=== PATIENT | female | born 1985 ===

== ENCOUNTER 2018-03-01 14:28 | Emergency (ER) | payer BC ==
--- NOTE | 2018-03-01 14:45 | PDOC ---
Rapid Medical Evaluation Time Seen by Provider: 03/01/18 14:38 Medical Evaluation: Allergies Allergy/AdvReac Type Severity Reaction Status Date / Time adhesive tape Allergy hives Unverified 05/04/17 15:53 albuterol Allergy makes her Unverified 05/04/17 15:53 stop breathing nickel Allergy Hives Unverified 05/04/17 15:53 cats,dogs, weeds, trees Allergy congestion Uncoded 05/04/17 15:53 SSRI AdvReac Severe Palpitation Uncoded 05/04/17 16:32 03/01/18 14:39 The patient presents with a chief complaint of: L shoulder pain for 8 days, possible dislocation I have performed a brief in-person evaluation of this patient; Pertinent physical exam findings: ambulatory, in no respiratory distress, pain with abduction of L shoulder I have ordered the following: L shoulder x-ray The patient will proceed to the ED for further evaluation.
[2018-03-01 14:47] VITALS: TEMP 99.3; BMI 18.2
--- NOTE | 2018-03-01 15:39 | PDOC ---
History of Present Illness - General History Source: Patient Exam Limitations: No Limitations - History of Present Illness Initial Comments: 03/01/18 16:27 The patient is a 32 year old female with a significant PMH of Radha-Danlos syndrome, mitral valve prolapse, and narcolepsy who presents to the emergency presents to the emergency department with a suspected left shoulder dislocation beginning approximately 1 week ago. The patient reports she dislocates her left shoulder multiple times per week and is generally able to reduce it into place. She reports however that for this most recent episode she has been unable to reduce it and has developed associated LUE muscle tightness and neck soreness as noted by her physical therapist yesterday. The patient states she has only had to have her left shoulder reduced in the hospital once in the past and is usually able to reduce it on her own. The patient denies chest pain, shortness of breath, headache and dizziness. Denies fever, chills, nausea, vomit, diarrhea and constipation. Denies dysuria, frequency, urgency and hematuria. Allergies: Albuterol, SSRI. Adhesive tape. Past surgical history: Multiple hip surgeries. Ankle surgery. Cholecystectomy. Appendectomy. Tonsillectomy. Social history: No reported cigarette, alcohol, or drug use. PCP: Dr. Queen <Horacio Cano - Last Filed: 03/01/18 17:42> - General History Source: Patient Exam Limitations: No Limitations <Karine Schultz - Last Filed: 03/01/18 18:51> - General Chief Complaint: Shoulder Dislocation Stated Complaint: Shoulder Dislocation Time Seen by Provider: 03/01/18 14:38 Past History <Horacio Cano - Last Filed: 03/01/18 17:42> - Past Medical History Cardiac Disorders: (Albertina valve prolapse) COPD: No - Surgical History Appendectomy: Yes Cholecystectomy: Yes Neurologic Surgery: Yes (x7 hip) - Suicide/Smoking/Psychosocial Hx Smoking History: Never smoked Have you smoked in the past 12 months: No Information on smoking cessation initiated: No Hx Alcohol Use: No Drug/Substance Use Hx: No Substance Use Type: None <Karine Schultz - Last Filed: 03/01/18 18:51> - Past Medical History Allergies/Adverse Reactions: Allergies Allergy/AdvReac Type Severity Reaction Status Date / Time adhesive tape Allergy hives Verified 03/01/18 14:39 albuterol Allergy makes her Verified 03/01/18 14:39 stop breathing nickel Allergy Hives Verified 03/01/18 14:39 cats,dogs, weeds, trees Allergy congestion Uncoded 03/01/18 14:39 SSRI AdvReac Severe Palpitation Uncoded 03/01/18 14:39 Home Medications: Ambulatory Orders Armodafinil [Nuvigil] 150 mg PO DAILY tablet 05/04/17 Buprenorphine [Butrans] 1 each TD WEEKLY #20 microgram 05/04/17 Oxymorphone HCl [Opana] 10 mg PO ASDIR tablet 05/04/17 Xyrem 3 mcg PO ASDIR 05/04/17 Alprazolam [Xanax] 0.25 mg PO DAILY 03/01/18 L.acidoph,Paracasei, B.lactis [Probiotic] 1 each PO DAILY 03/01/18 Multivitamins [Tab-A-Vit -] 1 tab PO DAILY 03/01/18 Ondansetron [Zofran -] 8 mg PO BID PRN 03/01/18 Review of Systems - Review of Systems Able to Perform ROS?: Yes Comments:: 03/01/18 16:17 GENERAL/CONSTITUTIONAL: No fever or chills. No weakness. HEAD, EYES, EARS, NOSE AND THROAT: No change in vision. No ear pain or discharge. No sore throat. CARDIOVASCULAR: No chest pain or shortness of breath. RESPIRATORY: No cough, wheezing, or hemoptysis. GASTROINTESTINAL: No nausea, vomiting, diarrhea or constipation. GENITOURINARY: No dysuria, frequency, or change in urination. MUSCULOSKELETAL: (+) Left shoulder muscle and neck soreness. No back pain. SKIN: No rash NEUROLOGIC: No headache, vertigo, loss of consciousness, or change in strength/ sensation. ENDOCRINE: No increased thirst. No abnormal weight change. HEMATOLOGIC/LYMPHATIC: No anemia, easy bleeding, or history of blood clots. ALLERGIC/IMMUNOLOGIC: No hives or skin allergy. <Horacio Cano - Last Filed: 03/01/18 17:42> *Physical Exam - Vital Signs Last Vital Signs Temp Pulse Resp BP Pulse Ox 99.3 F 115 H 20 137/7 99 03/01/18 14:39 03/01/18 14:39 03/01/18 14:39 03/01/18 14:39 03/01/18 14:39 - Physical Exam Comments: 03/01/18 17:43 GENERAL: Awake, alert, and fully oriented, in no acute distress HEAD: No signs of trauma EYES: PERRLA, EOMI, sclera anicteric, conjunctiva clear ENT: Auricles normal inspection, hearing grossly normal, nares patent, oropharynx clear without exudates. Moist mucosa NECK: Normal ROM, supple, no lymphadenopathy, JVD, or masses LUNGS: Breath sounds equal, clear to auscultation bilaterally. No wheezes, and no crackles HEART: Regular rate and rhythm, normal S1 and S2, no murmurs, rubs or gallops ABDOMEN: Soft, nontender, normoactive bowel sounds. No guarding, no rebound. No masses EXTREMITIES: (+) Limited abduction in LUE due to pain, able to touch right shoulder with left hand. Sensation intact over deltoid and in hand. Radial, median, and ulnar motor and sensation intact. 2+ radial and ulnar pulses. No edema. No clubbing or cyanosis. No cords or erythema. NEUROLOGICAL: Cranial nerves II through XII grossly intact. Normal speech, normal gait SKIN: Warm, Dry, normal turgor, no rashes or lesions noted. <Horacio Cano - Last Filed: 03/01/18 17:42> - Vital Signs Last Vital Signs Temp Pulse Resp BP Pulse Ox 99.3 F 115 H 20 137/7 99 03/01/18 14:39 03/01/18 14:39 03/01/18 14:39 03/01/18 14:39 03/01/18 14:39 <Karine Schultz - Last Filed: 03/01/18 18:51> ED Treatment Course - Medications Given in the ED: ED Medications Discontinued Medications Generic Name Dose Route Start Last Admin Trade Name Freq PRN Reason Stop Dose Admin Morphine Sulfate 4 mg 03/01/18 16:06 03/01/18 16:15 Morphine Injection - IVPUSH 03/01/18 16:07 4 mg ONCE ONE Administration <Horacio Cano - Last Filed: 03/01/18 17:42> Medical Decision Making - Medical Decision Making 03/01/18 18:46 Ms. Kang is a 32 yo F who presents to the ER with a complaint of left shoulder pain, concern for chronic shoulder dislocation Pt has had recurrent shoulder dislocations in the past Shoulder examination: Deltoid senstaion in tact R/M/U motor and sensation in tact 2+ RP, UP Able to touch the opposing shoulder Pt reports severe pain Given Morphine for pain (pt take Opanna and percocet 10/325 tid) Pt continues to have pain Given percocet (home dose) x 2 Will discharge to home Will ask pt to follow up with Ortho Clinical impression: Left shoulder subluxation, initial presentation <Karine Schultz - Last Filed: 03/01/18 18:51> *DC/Admit/Observation/Transfer - Attestations Scribe Attestion: 03/01/18 16:17 Documentation prepared by Horacio Cano, acting as medical pathology teacher for Karine Schultz MD. <Horacio Cano - Last Filed: 03/01/18 17:42> - Discharge Dispostion Decision to Admit order: No <Karine Schultz - Last Filed: 03/01/18 18:51> Diagnosis at time of Disposition: Shoulder subluxation, left Qualifiers: Encounter type: initial encounter Qualified Code(s): S43.002A - Unspecified subluxation of left shoulder joint, initial encounter - Discharge Dispostion Disposition: HOME Condition at time of disposition: Stable - Referrals Referrals: Shade Queen MD [Primary Care Provider] - - Patient Instructions Printed Discharge Instructions: DI for Shoulder Pain Additional Instructions: Ms Kang! Thanks for coming in to the ER today Please be sure to follow up with the palliative care specialist You may need additional imaging studies Please feel free to return to the ER for any other concerns or complaints
[2018-03-01] MEDS ORDERED: morphine CARPU-JECT 4 MG/1 ML DISP.SYRIN IVPUSH ONE (16:06)
[2018-03-01] MEDS ORDERED: morphine SULFATE 4 MG/ML VIAL ONE (16:10)
[2018-03-01 19:13] VITALS: BP 130/74; PULSE 86
== END 2018-03-01 19:13 | disposition home or self-care (01) ==
LOC: JER 14:28
PROC: 3E033NZ Introduction of Analgesics, Hypnotics, Sedatives into Peripheral Vein, Percutaneous Approach (ICD-10-PCS; principal; 2018-03-01)
DX: M24.412 Recurrent dislocation, left shoulder (principal); I34.1 Nonrheumatic mitral (valve) prolapse; G47.419 Narcolepsy without cataplexy
CPT/HCPCS: 36415; 73030-TC-LT-FY; 73200-TC-RT; 84703; 99282-25